=== PATIENT | male | born 1985 | race African-American/Black ===

== ENCOUNTER 2018-10-05 18:52 | Emergency (ER) | payer SELFPAY ==
[~2018-10-05] VITALS: Ht 175.3 cm; Wt 75.0 kg
[2018-10-05] MEDS ORDERED: SODIUM CHLORIDE 0.9% 1,000 ML IV ONE (20:35)
[2018-10-05] MEDS ORDERED: ONDANSETRON HCL 4MG/2ML INJ IV ONE (20:45)
[2018-10-05] MEDS ORDERED: FENTANYL CITRATE/PF 50MCG/ML 2ML VIAL IV ONE (20:45)
[2018-10-05] MEDS ORDERED: ETOMIDATE 2MG/ML 10ML VIAL IV ONE (21:15)
[2018-10-05 22:05] VITALS: BP 131/85
== END 2018-10-05 22:07 | disposition home or self-care (01) ==
LOC: ER 18:52
DX: S43.015A Anterior dislocation of left humerus, initial encounter (principal); R03.0 Elevated blood-pressure reading, without diagnosis of hypertension; X58.XXXA Exposure to other specified factors, initial encounter; Y93.67 Activity, basketball; Y92.89 Other specified places as the place of occurrence of the external cause
CPT/HCPCS: 23650; 73030; 96374; 96375; 99152; 99285; J2405; J3010; J3490; J7030; L3670

== ENCOUNTER 2023-03-06 15:29 | Emergency (ER) | payer MEDICAID ==
[~2023-03-06] VITALS: Ht 175.3 cm; Wt 80.0 kg
[2023-03-06 15:36] VITALS: BP 127/68
[2023-03-06] MEDS ORDERED: LIDOCAINE HCL 1% 20ML VIAL (Pyxis) INJ INFIL ONE (18:30)
[2023-03-06] MEDS ORDERED: CEFTRIAXONE SODIUM 500 MG/VIAL IM ONE (18:30)
[2023-03-06 19:14] LABS: CLARITY URINE CLOUDY (CLEAR); COLOR URINE DARK YELLOW (YELLOW); KETONES URINE TRACE (NEGATIVE); LEUKOCYTE ESTERASE URINE 2+ (NEGATIVE); NITRITE URINE POSITIVE (NEGATIVE); OCCULT BLOOD URINE NEGATIVE (NEGATIVE); PROTEIN URINE 1+ (NEGATIVE); SPECIFIC GRAVITY URINE 1.031 (1.005-1.030)
[2023-03-06] MEDS ORDERED: SULF1TAB48 MT (19:40)
[2023-03-06] MEDS ORDERED: DOXY100C5 MT (19:40)
[2023-03-09 04:07] LABS: NEISSERIA GONORRHOEAE NAA Positive (Negative)
== END 2023-03-06 19:50 | disposition home or self-care (01) ==
LOC: ER 15:29
DX: N39.0 Urinary tract infection, site not specified (principal)
CPT/HCPCS: 81003; 87077; 87086; 87186; 87491; 87591; 96372; 99283; J0696; J3490